=== PATIENT | male | born 1995 | race Asian ===

== ENCOUNTER 2017-07-13 14:26 | Emergency (ER) | payer MEDICAID, OTHER ==
[~2017-07-13] VITALS: Ht 175.3 cm; Wt 65.0 kg
[2017-07-13 14:45] VITALS: Ht 175.3 cm; Wt 65.0 kg
--- NOTE | 2017-07-13 16:54 | ERD ---
ER Documentation Chief Complaint Chief Complaint nausea, vomitting kraus x3 days HPI 21-year-old male presents with a chief complaint of lightheadedness 3 days. Patient has had symptoms in the past year and have spontaneously resolved. No medical conditions. Has not taken any medications to relieve the symptoms. Denies alcohol abuse or drug use. No changes in activities of daily living or lifestyle changes. No stressors. Works at [employer]. Family history of type 2 diabetes mellitus. Denies aggravating or alleviating factors. Denies dizziness, fever, chills, headache, nausea, vomiting, abdominal pain, chest pain , shortness of breath. Patient has no other complaints and describes no other associated manifestations. ROS All systems reviewed and are negative except as per history of present illness. Allergies Allergies: Coded Allergies: No Known Allergy (Unverified , 07/13/17) Physical Exam Vitals Vital Signs Date Time Temp Pulse Resp B/P Pulse Ox O2 Delivery O2 Flow Rate FiO2 07/13/17 14:45 99.5 65 20 132/83 100 Physical Exam Const: Well-appearing. No acute distress. Head: Normocephalic, Atraumatic. Eyes: Non-injected; No discharge. EOMI and RITA bilaterally. Ears: Normal External Ears, EACs clear, TM normal bilaterally without erythema. Nose: Normal external nose; no discharge, or sinus tenderness. Oral: No oral edema visualized. Mucous membranes moist and pink. Neck: No cervical lymphadenopathy, or masses palpated. Supple ~ No meningismus. Pulm: Good air movement in upper and lower respiratory tracts. Clear to auscultation bilaterally. No dyspnea or stridor. Cardio: Regular rate and rhythm; No murmurs, gallops or rubs auscultated. Radial pulses 2+ bilaterally. No cyanosis noted. Capillary refill less than 2 seconds. Abd: Normal bowel sounds. Soft, non tender, non distended. MS: Normal motor strength, normal tone with gross examination. Skin: No petechiae or rashes. Good turgor. Back: No midline, flank or CVA tenderness. Ext: No edema. Normal movement of all extremities grossly observed. Neur: Neurovascularly intact bilaterally. Psych: Normal Mood and Affect. Result Diagram: 07/13/17 1645 07/13/17 1645 Results 24 hrs Laboratory Tests Test 07/13/17 16:45 07/13/17 16:50 07/13/17 16:54 White Blood Count 5.510^3/ul Red Blood Count 5.4610^6/ul Hemoglobin 16.7g/dl Hematocrit 47.4% Mean Corpuscular Volume 86.8fl Mean Corpuscular Hemoglobin 30.6pg Mean Corpuscular Hemoglobin Concent 35.2g/dl Red Cell Distribution Width 11.9% Platelet Count 79594^3/UL Mean Platelet Volume 8.4fl Neutrophils % 53.2% Lymphocytes % 33.8% Monocytes % 8.0% Eosinophils % 3.4% Basophils % 1.4% Nucleated Red Blood Cells % 0.0/100WBC Neutrophils # 2.910^3/ul Lymphocytes # 1.910^3/ul Monocytes # 0.410^3/ul Eosinophils # 0.210^3/ul Basophils # 0.110^3/ul Nucleated Red Blood Cells # 0.010^3/ul Sodium Level 145mmol/L Potassium Level 3.7mmol/L Chloride Level 102mmol/L Carbon Dioxide Level 27mmol/L Anion Gap 20 Blood Urea Nitrogen 8mg/dl Creatinine 0.77mg/dl Glucose Level 83mg/dl Calcium Level 9.6mg/dl Bedside Glucose 83mg/dL Bedside Urine pH (LAB) 7.0 Bedside Urine Protein (LAB) Negative Bedside Urine Glucose (UA) Negative Bedside Urine Ketones (LAB) Negative Bedside Urine Blood Trace-intact Bedside Urine Nitrite (LAB) Negative Bedside Urine Leukocyte Esterase (L Negative Procedures/MDM Otherwise healthy 21-year-old male presenting with a chief complaint of lightheadedness 3 days. Similar symptoms in past. Family history of type II DM. CBC, BMP, urine dip, and Accu-Chek were obtained. PG within normal limits. CBC WNL. Urine dip showed trace hematuria. CBCs showed anion gap of 16 and sodium of 145. Presented the case my attending who recommended possible dehydration. I have no suspicion for serious bacterial infection, anemia, cardiovascular pathologies. I recommended that the patient follow-up with primary care physician within the next 2-3 days. I have spoke with the patient regarding their condition and future management. They have verbally responded that they understand their status and treatment plan. The patients vitals are stable, and their current condition is appropriate for discharge. The patient will be given discharge instructions with return precautions. Departure Diagnosis: Primary Impression: Dehydration Condition: Stable Comments Second history was obtained due to difference between given history nursing notes. ROSE BRADEN PA-C Jul 13, 2017 16:54
[2017-07-13 16:56] LABS: URINE BLOOD (Dip) POC Trace-intact (NEGATIVE)
[2017-07-13 17:04] LABS: BASOPHIL # 0.1 10^3/ul (0.0-0.1); BASOPHILS % 1.4 % (0.0-2.0); EOSINOPHILS # 0.2 10^3/ul (0.0-0.5); EOSINOPHILS % 3.4 % (0.0-7.0); HEMATOCRIT 47.4 % (42.0-52.0); HEMOGLOBIN 16.7 g/dl (14.0-18.0); LYMPHOCYTES # 1.9 10^3/ul (0.8-2.9); LYMPHOCYTES % 33.8 % (18.0-55.0); MEAN CORPUSCULAR HEMOGLOBIN 30.6 pg (29.0-33.0); MEAN CORPUSCULAR HGB CONC 35.2 g/dl (32.0-37.0); MEAN CORPUSCULAR VOLUME 86.8 fl (72.0-104.0); MEAN PLATELET VOLUME 8.4 fl (7.4-10.4); MONOCYTE # 0.4 10^3/ul (0.3-0.9); NEUTROPHIL # 2.9 10^3/ul (1.6-7.5); NEUTROPHILS % 53.2 % (30.0-74.0); PLATELET COUNT 295 10^3/UL (140-415); RED BLOOD COUNT 5.46 10^6/ul (4.70-6.10); RED CELL DISTRIBUTION WIDTH 11.9 % (11.5-14.5); WHITE BLOOD COUNT 5.5 10^3/ul (4.8-10.8)
[2017-07-13 17:32] LABS: CALCIUM 9.6 mg/dl (8.4-10.2); CREATININE 0.77 mg/dl (0.61-1.24); POTASSIUM 3.7 mmol/L (3.5-5.1)
[2017-07-13 18:33] VITALS: BP 128/78; PULSE 66; RESP 18; TEMP 99.5
== END 2017-07-13 18:34 | disposition home or self-care (01) ==
LOC: FTE 14:26
DX: E86.0 Dehydration (principal)
CPT/HCPCS: 80048; 81003; 82962; 85025; Z7502; 99283